=== PATIENT | male | born 1970 | race Caucasian/White ===

== ENCOUNTER 2020-05-23 07:46 | Day surgery (SDC) | payer BC ==
[2020-05-18 16:33] LABS: EOSINOPHILS # (AUTO) 0.5 X10'3 (0-0.9); MONOCYTES # (AUTO) 1.2 X10'3 (0-0.9)
[2020-05-18 16:34] LABS: BASOPHILS # (AUTO) 0.1 X10'3 (0-0.2); BASOPHILS % (AUTO) 0.7 % (0-1); EOSINOPHILS % (AUTO) 4.5 % (0-6); LYMPHOCYTES # (AUTO) 2.4 X10'3 (1.1-4.8); LYMPHOCYTES % (AUTO) 22.1 % (21-51); MEAN CORPUSCULAR HEMOGLOBIN 33.6 PG (27.0-31.0); MEAN CORPUSCULAR HGB CONC 34.6 g/dL (33.0-36.5); MEAN CORPUSCULAR VOLUME 97.1 FL (78-98); MEAN PLATELET VOLUME 7.6 FL (7.4-10.4); MONOCYTES % (AUTO) 11.1 % (2-12); NEUTROPHILS # (AUTO) 6.7 X10'3 (1.8-7.7); NEUTROPHILS % (AUTO) 61.6 % (42-75); PRE OP HEMATOCRIT 43.3 % (42.0-52.0); PRE OP PLATELET COUNT 430 X10'3 (140-440); RED BLOOD COUNT 4.45 X10'6 (4.70-6.10); RED CELL DISTRIBUTION WIDTH 12.1 % (11.5-14.5)
[2020-05-18 16:43] LABS: PRE OP PROTIME 10.2 SECONDS (9.0-12.0)
[2020-05-18 16:46] LABS: ALBUMIN/GLOBULIN RATIO 1.1 (1.1-1.5); ALKALINE PHOSPHATASE 59 IU/L (46-116); BLOOD UREA NITROGEN 14 MG/DL (7-18); BUN/CREATININE RATIO 12.1 (5.4-32.0); CALCIUM 9.3 MG/DL (8.5-10.1); CHLORIDE 106 MMOL/L (99-107); CREATININE 1.16 MG/DL (0.60-1.10); PRE OP ALT 42 U/L (30-65); PRE OP ANION GAP 6 (8-16); PRE OP AST 19 U/L (10-37); PRE OP BILIRUB, TOTAL 0.2 MG/DL (0.0-1.0); PRE OP GLUCOSE 99 MG/DL (70-104); PRE OP POTASSIUM 4.1 MMOL/L (3.4-5.1); PRE OP SODIUM 142 MMOL/L (135-145); TOTAL CARBON DIOXIDE 29.8 MMOL/L (24-32); TOTAL PROTEIN 7.7 G/DL (6.4-8.2); eGFR 66 ML/MIN
[~2020-05-23] VITALS: Ht 182.9 cm; Wt 136.1 kg
[2020-05-23] VITALS (20 sets, daily range): BP systolic 117–196; BP diastolic 69–121
[~2020-05-23 07:46] MED LIST: ALBU8.5H8 INH; BUPIVACAINE liposomal/PF 13.3 MG/ML vial IM ONE; BUPIVAcaine/PF 2.5 mg/ml (0.25%) 30ml vial ONE; BUPIVAcaine/PF 2.5mg/ml (0.25%) 10ml vial ONE; FLUT12AE5 IH; LIDOcaine 1% 30ml preserv. free vial ONE; LISI40TA4 PO; MULT-384 PO; albuterol 2.5 MG/3 ML nebule NEB ONE; ceFAZolin 1GM/D5W- ADD-VANTAGE 50 ML IV ONE; ceFAZolin 2gm in dextrose, iso 50 ML IV ONE; famotidine 20mg tablet PO ONE; ringers solution, lacted 1,000 ML IV SCH
[2020-05-23] MEDS ORDERED: sevoflurane 250ml liquid IH ONE (09:45)
[2020-05-23] MEDS ORDERED: fentaNYL/PF 50MCG/1 ML 2ML syringe ONE ×2 (09:53→10:00)
--- NOTE | 2020-05-23 09:58 | NUR ---
COVID TEST RESULTS NOT BACK YET. PASSED VERBAL COVID 19 SCREENING QUESTIONS.
[2020-05-23] MEDS ORDERED: dexamethasone sod phosphate 4mg/ml inj. ONE (10:06)
[2020-05-23] MEDS ORDERED: propofol inj 20 ML IV ONE (10:06)
[2020-05-23] MEDS ORDERED: glycopyrrolate 0.2mg/ml inj ONE (10:06)
[2020-05-23] MEDS ORDERED: LIDOcaine 2% (20mg/ml) 5ml vial ONE (10:06)
[2020-05-23] MEDS ORDERED: succinylcholine 20mg/ml inj IV ONE (10:06)
[2020-05-23] MEDS ORDERED: neostigmine methylsulfate 1 MG/ML 10ml vial ONE (10:06)
[2020-05-23] MEDS ORDERED: rocuronium 10mg/ml inj IV ONE (10:06)
[2020-05-23] MEDS ORDERED: ondansetron/PF 4mg/2ml inj ONE (10:06)
[2020-05-23] MEDS ORDERED: morphine 4 MG/ML inj SYRINge IV PRN (10:30)
[2020-05-23] MEDS ORDERED: morphine 2 MG/ML inj. syringe IV PRN (10:30)
[2020-05-23] MEDS ORDERED: meperidine/PF 25mg/ml syringe IV PRN ×2 (10:30)
[2020-05-23] MEDS ORDERED: proCHLORperazine 10 MG/2 ml inj IV PRN (10:30)
[2020-05-23] MEDS ORDERED: ondansetron/PF 4mg/2ml inj IV PRN (10:30)
[2020-05-23] MEDS ORDERED: ringers solution, lacted 1,000 ML IV SCH (10:30)
[2020-05-23] MEDS ORDERED: meperidine/PF 25mg/ml syringe ONE (12:02)
--- NOTE | 2020-05-23 12:02 | NUR ---
Received from OR via [facility], accompanied by Anesthesiologist DR DENTON and report given by Anesthesiologist. PT DROWSY, C/O ABOMINAL PAIN, 25 MG DEMEROL GIVEN, ABDOMEN W/3 LAP SITES W/BANDAIDS AND 1 [facility] [place] DRSG CDI. PTS BP ELEVATED, SEE PACU RECORDS, 3 DOSES OF LABETALOL GIVEN PER DR DENTON ORDERS, SCANNED AND VERIFIED DOSE AND MEDICATION BUT VIAL WOULD NOT SCAN ANY OF THE TIMES. Addendum: 05/23/20 at 1253 by Kay Hammer RN Amended: Links added.
[2020-05-23] MEDS ORDERED: oxyCODONE/APAP 5-325mg tablet PO PRN ×2 (12:10)
[2020-05-23] MEDS ORDERED: labetalol 20mg/4ml (5mg/ml) syringe IV ONE ×2 (12:12→12:15)
[2020-05-23] MEDS: meperidine/PF 25mg/ml syringe IV PRN ×2 (12:18→13:29)
[2020-05-23] MEDS: labetalol 20mg/4ml (5mg/ml) syringe IV PRN ×2 (12:22→12:33)
[2020-05-23] MEDS: hydrALAZINE 20mg/ml inj. IV PRN ×2 (12:56→14:10)
--- NOTE | 2020-05-23 15:22 | NUR ---
D/C INSTRUCTIONS GIVEN AND GONE OVER W/PT WHO VERBALIZED UNDERSTANDING, PT D/CD TO HOME VIA W/C TO PRIVATE VEHICLE W/O INCIDENT. Addendum: 05/23/20 at 1551 by Kay Hammer RN Amended: Links added.
== END 2020-05-23 15:22 | disposition home or self-care (01) ==
LOC: PAS 07:46
PROVIDERS: ATTEND Surgery
DX: K42.0 Umbilical hernia with obstruction, without gangrene (principal); K66.0 Peritoneal adhesions (postprocedural) (postinfection); I10 Essential (primary) hypertension; Z98.890 Other specified postprocedural states
CPT/HCPCS: 36415; 49653; 64488; 80053; 82948; 85025; 85610; 85730; 87635; 93005; 94640; 94760; C9290; J0330; J0360; J0690; J1100; J2001; J2175; J2270; J2405; J2704; J2710; J3010; J3490; S2900; A4215; A4618; C1781; J7120